=== PATIENT | female | born 1980 | race Caucasian/White ===

== ENCOUNTER 2022-12-18 17:46 | Emergency (ER) | payer OTHER ==
[~2022-12-18] VITALS: Ht 167.7 cm; Wt 73.4 kg
--- NOTE | 2022-12-18 18:06 | ED Chest Pain ---
General Chief Complaint: Chest Pain Stated Complaint: CHEST PAIN Nursing Triage Note: C/O DULL CONSTANT CHESTPAIN THAT STARTED AT 1700 12/17/22, WORSENING WITH ACTIVITY. Source: patient Exam Limitations: no limitations (JOSIANE BELLO APRN) History of Present Illness Date Seen by Provider: Dec 18, 2022 Time Seen by Provider: 17:51 Initial Comments 42-year-old female presents to the ER with complaints of constant dull left-s ided chest pain with frequent intermittent sharp pains that started last night at 5 PM. She states that the pain was the worst last night after she got home from work. She reports the sharp pain is worse when she takes a deep breath or when she is bending over or when she was lying down to sleep. She states that she had to get up last night and sit in her recliner which helped the pain. She felt short of air last night due to being unable to take a full breath. She states that her shortness of breath is better now. She had dizziness this morning, states that has improved. Denies pressure-like pain. Denies worsening pain with exertion, denies diaphoresis, denies nausea and vomiting. She has taken 3 doses of aspirin today. She smokes cigarettes, drinks alcohol occasionally, and has used marijuana recently. Denies any past medical history. (JOSIANE BELLO APRN) Allergies and Home Medications Allergies Coded Allergies: No Known Allergies (Verified Allergy, Unknown, 01/24/07) Patient Home Medication List Home Medication List Reviewed: Yes (JOSIANE BELLO APRN) Review of Systems Review of Systems Constitutional: see HPI (JOSIANE BELLO APRN) Past Qdhvmgn-Lgzesi-Uztooj Hx Patient Social History Tobacco Use?: Yes Tobacco type used: Cigarettes Smoking Status: Current Everyday Smoker Use of E-Cig and/or Vaping dev: No Substance use?: Yes Substance type: Marijuana Substance frequency: Once in a while Alcohol Use?: Yes Alcohol Frequency: Rarely Pt feels they are or have been: No (JOSIANE BELLO APRN) Immunizations Up To Date First/Initial COVID19 Vaccinat: NO (JOSIANE EBLLO APRN) Past Medical History Surgery/Hospitalization HX: C SECTION Last Menstrual Period: Dec 18, 2022 (JOSIANE BELLO APRN) Physical Exam Vital Signs Vital Signs - First Documented 12/18/22 12/18/22 17:53 19:46 Pulse 87 Resp 20 B/P (MAP) 127/80 (96) Pulse Ox 98 O2 Delivery Room Air (TRAVON MAHAN MD) Vital Signs Capillary Refill : Less Than 3 Seconds (JOSIANE BELLO APRN) Height, Weight, BMI Height: '" Weight: lbs. oz. kg; 26.00 BMI Method: General Appearance: No Apparent Distress, WD/WN Neck: Normal Inspection, Supple Respiratory: Chest Non Tender, Lungs Clear, Normal Breath Sounds, No Accessory Muscle Use, No Respiratory Distress Cardiovascular: Regular Rate, Rhythm Extremity: Normal Capillary Refill, Normal Range of Motion Neurologic/Psychiatric: Alert, Normal Mood/Affect Skin: Normal Color, Warm/Dry (JOSIANE BELLO APRN) Progress/Results/Core Measures Results/Orders Lab Results Laboratory Tests Test 12/18/22 17:58 Range/Units White Blood Count 8.5 4.3-11.0 10^3/uL Red Blood Count 4.46 3.80-5.11 10^6/uL Hemoglobin 13.1 11.5-16.0 g/dL Hematocrit 39 35-52 % Mean Corpuscular Volume 87 80-99 fL Mean Corpuscular Hemoglobin 29 25-34 pg Mean Corpuscular Hemoglobin Concent 34 32-36 g/dL Red Cell Distribution Width 13.2 10.0-14.5 % Platelet Count 274 130-400 10^3/uL Mean Platelet Volume 11.3 9.0-12.2 fL Immature Granulocyte % (Auto) 0 % Neutrophils (%) (Auto) 66 42-75 % Lymphocytes (%) (Auto) 19 12-44 % Monocytes (%) (Auto) 10 0-12 % Eosinophils (%) (Auto) 4 0-10 % Basophils (%) (Auto) 0 0-10 % Neutrophils # (Auto) 5.7 1.8-7.8 10^3/uL Lymphocytes # (Auto) 1.7 1.0-4.0 10^3/uL Monocytes # (Auto) 0.8 0.0-1.0 10^3/uL Eosinophils # (Auto) 0.4 H 0.0-0.3 10^3/uL Basophils # (Auto) 0.0 0.0-0.1 10^3/uL Immature Granulocyte # (Auto) 0.0 0.0-0.1 10^3/uL Prothrombin Time 13.6 12.2-14.7 SEC INR Comment 1.0 0.8-1.4 Activated Partial Thromboplast Time 35 24-35 SEC Sodium Level 138 135-145 MMOL/L Potassium Level 5.2 H 3.6-5.0 MMOL/L Chloride Level 108 H 98-107 MMOL/L Carbon Dioxide Level 19 L 21-32 MMOL/L Anion Gap 11 5-14 MMOL/L Blood Urea Nitrogen 13 7-18 MG/DL Creatinine 0.72 0.60-1.30 MG/DL Estimat Glomerular Filtration Rate 108 BUN/Creatinine Ratio 18 Glucose Level 87 70-105 MG/DL Calcium Level 9.4 8.5-10.1 MG/DL Corrected Calcium 9.3 8.5-10.1 MG/DL Magnesium Level 2.1 1.6-2.4 MG/DL Total Bilirubin 0.4 0.1-1.0 MG/DL Aspartate Amino Transf (AST/SGOT) 26 5-34 U/L Alanine Aminotransferase (ALT/SGPT) 12 0-55 U/L Alkaline Phosphatase 48 40-136 U/L Total Creatine Kinase 54 29-168 U/L Troponin I < 0.028 <0.028 NG/ML Total Protein 8.0 6.4-8.2 GM/DL Albumin 4.1 3.2-4.5 GM/DL (TRAVON MAHAN MD) My Orders Orders - TRAVON MAHAN MD Ekg Tracing (12/18/22 17:51) (TRAVON MAHAN MD) Vital Signs/I&O 12/18/22 12/18/22 17:53 19:46 Pulse 87 79 Resp 20 14 B/P (MAP) 127/80 (96) 118/69 Pulse Ox 98 O2 Delivery Room Air Room Air (TRAVON MAHAN MD) Blood Pressure Mean: 96 Progress Progress Note : Progress Note Patient seen and evaluated, resting comfortably in bed, no acute distress. Based on exam and symptoms, work-up initiated including CBC, CMP, troponin, ma gnesium, coags, chest x-ray, EKG. Labs and x-ray reviewed. CBC grossly normal. CMP shows slightly elevated potassium 5.2, slightly elevated chloride 108, slightly decreased CO2 19. Coags normal. IV fluids ordered for elevated potassium. Results discussed with patient. Patient's IV went bad, unable to get the IV fluids. I will not have nursing staff start another IV for the fluids. Patient directed to drink plenty of water over the next couple days. Patient instructed to have her potassium redrawn in a couple days to ensure that it is not down. Discharge instructions and return precautions provided. (JOSIANE BELLO APRN) Initial ECG Impression Date: Dec 18, 2022 Initial ECG Impression Time: 17:56 Initial ECG Rate: 79 Initial ECG Rhythm: Normal Sinus Initial ECG Intervals: Normal Initial ECG Impression: Nonspecific Changes Initial ECG Comparisson: No Previous ECG Available (JOSIANE BELLO APRN) Diagnostic Imaging Diagonstic Imaging: Xray Plain Films/CT/US/NM/MRI: chest Comments [facility], [place] NAME: NADEEM BUENO Herman [facility] REC#: [id number] PT STATUS: REG ER : 1980 PHYSICIAN: JOSIANE BELLO APRN ADMIT DATE: 12/18/22/ER Signed Date of Exam:12/18/22 CHEST 1 VIEW, AP/PA ONLY EXAMINATION: Chest radiograph, portable AP view. DATE: 12/18/2022 6:19 PM INDICATION: 42-year-old female, chest pain. COMPARISON: None. FINDINGS: Heart size and mediastinal contours are unremarkable. There is no identified pneumothorax. There is no large pleural effusion. There is no identified focal airspace consolidation. IMPRESSION: No identified acute cardiopulmonary abnormality. Dictated by: Dictated on workstation # [id number] Dict: 12/18/221823 Trans: 12/18/221824 [facility] [id number] Interpreted by: ANN CORDOBA MD Electronically signed by: ANN CORDOBA MD 12/18/221824 (JOSIANE BELLO APRN) Departure Impression Primary Impression: Chest pain Qualified Codes: R07.9 - Chest pain, unspecified Disposition: 01 HOME, SELF-CARE Condition: Stable Departure-Patient Inst. Decision time for Depature: 19:34 (JOSIANE BELLO APRN) Referrals: [facility] [place] Patient Instructions: Chest Pain That Is Not Caused by the Heart (DC) Add. Discharge Instructions: Be sure to drink plenty of water the next couple days. You should have your potassium level redrawn in a couple of days, you can do this with your primary care provider or the [facility] walk-in clinic. Return for severe chest pain, shortness of air, or any other new, concerning, or worsening symptoms. All discharge instructions reviewed with patient and/or family. Voiced underst anding. ATTENDING PHYSICIAN NOTE: I was physically present as attending physician in the emergency department during the care of this patient, but I was not directly involved in the decision making or delivery of care for this patient. (TRAVON MAHAN MD) JOSIANE BELLO APRN Dec 18, 2022 18:06 TRAVON MAHAN MD Dec 21, 2022 11:57
[2022-12-18 18:09] LABS: BASOPHILS % (AUTO) 0 % (0-10); EOSINOPHILS # (AUTO) 0.4 10^3/uL (0.0-0.3); EOSINOPHILS % (AUTO) 4 % (0-10); HEMATOCRIT 39 % (35-52); HEMOGLOBIN 13.1 g/dL (11.5-16.0); LYMPHOCYTES # (AUTO) 1.7 10^3/uL (1.0-4.0); LYMPHOCYTES % (AUTO) 19 % (12-44); MEAN CORPUSCULAR HEMOGLOBIN 29 pg (25-34); MEAN CORPUSCULAR HGB CONC 34 g/dL (32-36); MEAN CORPUSCULAR VOLUME 87 fL (80-99); MEAN PLATELET VOLUME 11.3 fL (9.0-12.2); MONOCYTES # (AUTO) 0.8 10^3/uL (0.0-1.0); MONOCYTES % (AUTO) 10 % (0-12); NEUTROPHILS # (AUTO) 5.7 10^3/uL (1.8-7.8); NEUTROPHILS % (AUTO) 66 % (42-75); PLATELET COUNT 274 10^3/uL (130-400); WHITE BLOOD COUNT 8.5 10^3/uL (4.3-11.0)
[2022-12-18 18:20] LABS: ALBUMIN 4.1 GM/DL (3.2-4.5)
[2022-12-18 18:21] LABS: CHLORIDE 108 MMOL/L (98-107); SODIUM 138 MMOL/L (135-145)
[2022-12-18 18:22] LABS: CALCIUM 9.4 MG/DL (8.5-10.1)
[2022-12-18 18:23] LABS: GLUCOSE 87 MG/DL (70-105)
[2022-12-18 18:24] LABS: CARBON DIOXIDE 19 MMOL/L (21-32); PROTHROMBIN TIME PATIENT 13.6 SEC (12.2-14.7)
[2022-12-18 18:25] LABS: BILIRUBIN,TOTAL 0.4 MG/DL (0.1-1.0)
--- NOTE | 2022-12-18 18:25 | Diagnostic Imaging Report ---
EXAMINATION: Chest radiograph, portable AP view. DATE: 12/18/2022 6:19 PM INDICATION: 42-year-old female, chest pain. COMPARISON: None. FINDINGS: Heart size and mediastinal contours are unremarkable. There is no identified pneumothorax. There is no large pleural effusion. There is no identified focal airspace consolidation. IMPRESSION: No identified acute cardiopulmonary abnormality. Dictated by: Dictated on workstation # [id number]
[2022-12-18 18:26] LABS: ALKALINE PHOSPHATASE 48 U/L (40-136)
[2022-12-18 18:27] LABS: CREATININE SERUM 0.72 MG/DL (0.60-1.30); GFR ESTIMATED 108; POTASSIUM 5.2 MMOL/L (3.6-5.0)
[2022-12-18 18:28] LABS: BUN/CREATININE RATIO 18
[2022-12-18 18:29] LABS: MAGNESIUM 2.1 MG/DL (1.6-2.4)
[2022-12-18 18:30] LABS: ALANINE AMINOTRANSFERASE 12 U/L (0-55)
[2022-12-18] MEDS ORDERED: NS IV 1000 ML 1,000 ML IV SCH (18:30)
[2022-12-18 19:46] VITALS: BP 118/69
== END 2022-12-18 19:46 | disposition home or self-care (01) ==
LOC: EDUNIT# 17:46 → ER 17:55
DX: R07.89 Other chest pain (principal); F17.210 Nicotine dependence, cigarettes, uncomplicated; Z28.310 Unvaccinated for COVID-19
CPT/HCPCS: 36415; 71045; 80053; 82550; 83735; 84484; 85025; 85610; 85730; 93041